=== PATIENT | female | born 1990 | race Caucasian/White ===

== ENCOUNTER 2024-04-21 01:17 | Emergency (ER) | payer OTHER, SELFPAY ==
[2024-04-21 01:22] VITALS: BP 143/117; PULSE 117; RESP 18; TEMP 36.3; O2SAT 98; BMI 26.2
--- NOTE | 2024-04-21 01:49 | ED_ITS ---
HPI - Abdominal Pain General Chief Complaint: Abdominal Pain Stated Complaint: Abdominal pain, short of breath Time Seen by Provider: 04/21/24 01:31 Source: patient and family Mode of arrival: ambulatory Limitations: no limitations History of Present Illness HPI narrative: 34-year-old female reports abdominal pain for the past hour, sudden onset. She reported to the triage nurse that the pain was located on her right side, tells me it is in the epigastric and left upper abdomen. Last bowel movement was around noon today, normal. Formed, no diarrhea or bloody stools. She does have a prior history of cholecystectomy. Says that the pain feels similar to that. She had this removed 3 years ago, uncomplicated per her report. Patient states that she had similar pain about a month ago in [place]. She reports that she was evaluated via telehealth visit and that injectable tramadol was sent to the pharmacy. She use the medication and her symptoms improved. She says that she was not evaluated in person by a provider, there were no labs, imaging or physical exam performed. I cannot verify this of course. Other than the gallbladder surgery 3 years ago, reports that she has also had liposuction but n o other abdominal surgeries. She states that she does not take long-term medications, does not have any allergies. She has had no recent fever. No trauma or injury. She is not having any dysuria, hematuria or gynecological changes. Denies chance of . She and her accompanying friend do repeatedly asked for injectable medications, even prior to completion of interview. She did not try taking any medication prior to coming to the ED. It sounds as though through the virtual visit that she had a month ago in [place], she was told that her symptoms were likely from some sort of renal colic. Again, I do ask for clarification and there were no labs or physical exam performed. It does not sound as though she has had any follow-up. She states that her past medical history is benign. I do not have any records to compare to. She has had a cholecystectomy 3 years ago and liposuction surgery. Denies other abdominal surgeries or gynecological surgeries. No long- term medications, no allergies. Nonsmoker. No history of bleeding or blood clotting disorder, no anticoagulants. ROS is notable for the abdominal symptoms only, otherwise denies times 12 systems. Related Data Home Medications ?Medication ?Instructions ?Recorded ?Confirmed No Known Home Medications 04/21/24 04/21/24 Allergies Allergy/AdvReac Type Severity Reaction Status Date / Time No Known Drug Allergies Allergy Verified 04/21/24 03:09 Exam Const: Vital Signs, click to edit/add: Vital Signs - 24 hr 04/21/24 01:22 Temperature 97.3 F L Pulse Rate [Pulse Oximeter] 117 H Respiratory Rate 18 Blood Pressure [Ri ght Upper Arm] 143/117 H Pulse Oximetry 98 Oxygen Delivery Me thod Room Air Documenting provider has reviewed patient's vital signs: yes Common normals: alert Other: Mild distress due to pain but can answer questions appropriately. HENMT: Common normals: normocephalic Head and scalp: normocephalic Face and sinus: normal facial exam Mouth: oral and palatal mucosa normal Throat: posterior oropharynx normal Eye: Common normals: conjunctivae normal General eye: normal appearance of both eyes Conjunctiva: conjunctiva(e) normal Neck & C-Spine: Common normals: no lymphadenopathy General: normal visual inspection Resp: Common normals: normal respiratory effort, no use of accessory muscles and clear to auscultation bilaterally Effort & inspection: able to speak in complete sentences Auscultation: clear to auscultation bilaterally Cardio: Common normals: regular rate, regular rhythm, S1 normal heart sound, S2 normal heart sound and no murmurs Rate: regular rate Rhythm: regular rhythm Heart sounds: S1 normal and S2 normal GI: Common normals: Normal to inspection, nondistended, normoactive bowel sounds present, soft to palpation, no hepatosplenomegaly and no masses Pal pation: soft and no hepatosplenomegaly Other: She reports pain to palpation of many areas, it does not seem to be very reproducible. There is certainly no rebound tenderness or guarding. She does seem quite uncomfortable on exam but it is not worse with deep palpation. It is a very unclear exam. There are no obvious mass. : Other: Mild right lower CVA tenderness but was not again purely reproducible. Back & Pelvis: Common normals: thoracic and lumbar spine normal to inspection Extremity: Common normals: normal to inspection and normal capillary refill General: normal exam except as noted Neuro: Sensorium/orientation: alert Speech: speech normal Motor exam: no movement abnormalities noted Psych: Common normals: thought process normal Attitude: engaged Activity/motor behavior: appropriate eye contact Thought process: normal thought process Insight: insight good Judgement: judgment good Skin: Common normals: no rashes or lesions noted General skin exam: no rashes or lesions noted Course Course ED Course: 34-year-old female presenting with significant abdominal pain, difficult to localize and described. Presentation and rapid onset are suspicious for ureterolithiasis. Cannot exclude bowel obstruction, pancreatitis, gastritis, gas pain, colitis, ischemic bowel, on reported trauma, gynecological complication, ectopic , narcotic withdrawal, amongst others. Unfortunately, exam was not very helpful. Dramatic presentation is suspicious for kidney stone, will start with Toradol and Zofran. I am hesitant to use narcotics especially with her repeated insistence for them and obtaining them over the phone from other providers recently. Will obtain urinalysis and test. Anticipate CT without contrast unless there are absolutely no signs of blood in the urine then will perform CT with contrast. Reevaluation(s) Time of Reevaluation #1: 03:23 Reevaluation #1: Patient was given Toradol, does seem more comfortable but claims that it was not particularly helpful. She has not had any vomiting, no diarrhea here. Her vitals are stable. All labs are normal. CT is normal. I counseled patient that I think that her pain is from gas but I do not see any reason for alarm. She may use [id number] Gas-X, Tylenol and ibuprofen as needed to treat her symptoms. Alarm symptoms reviewed that would warrant coming to the ED for this type of pain. Written instructions are provided. All questions answered. [employer] used for entire exam, explanation of results and time for questions. Primary care follow-up if frequent episodes or failure to resolve as expected. Vital Signs Vital signs: Initial Vital Signs Temperature 97.3 F L 04/21/24 01:22 Temperature Source Temporal Artery Scan 04/21/24 01:22 Pulse Rate 117 H 04/21/24 01:22 Respiratory Rate 18 04/21/24 01:22 Blood Pressure 143/117 H 04/21/24 01:22 Blood Pressure Mean 125 H 04/21/24 01:22 Blood Pressure Position Sitting 04/21/24 01:22 Pulse Oximetry 98 04/21/24 01:22 Oxygen Delivery Method Room Air 04/21/24 01:22 Vital Signs Temperature 97.3 F L 04/21/24 01:22 Pulse Rate 117 H 04/21/24 01:22 Respiratory Rate 18 04/21/24 01:22 Blood Pressure 143/117 H 04/21/24 01:22 Pulse Oximetry 98 04/21/24 01:22 Oxygen Delivery Method Room Air 04/21/24 01:22 Temperature 97.3 F L 04/21/24 01:22 Pulse Rate 117 H 04/21/24 01:22 Respiratory Rate 18 04/21/24 01:22 Blood Pressure 143/117 H 04/21/24 01:22 Pulse Oximetry 98 04/21/24 01:22 Oxygen Delivery Method Room Air 04/21/24 01:22 MDM - Abdominal Pain Lab Data Attestation: I reviewed the patient's lab results. Lab results narrative: Labs all reassuring Labs: Lab Results 04/21/24 04/21/24 04/21/24 Range/Units 01:40 01:52 01:55 WBC 6.13 (4.50-11.00) K/uL RBC 5.00 (4.00-5.20) m/uL Hgb 14.5 (12.0-16.0) gm/dL Hct 43.5 (33.0-51.0) % MCV 87 (80-100) fL MCH 29 (26-34) pg MCHC 33 (32-36) gm/dL RDW Coeff of Gurjit 13.0 (11.5-15.5) % Plt Count 319 (140-440) K/uL Neut % (Auto) 43.9 (42.0-72.0) % Lymph % (Auto) 46.3 H (20-44) % [place] % (Auto) 8.2 (0.0-11.0) % Eos % (Auto) 0.8 (0.0-7.0) % Baso % (Auto) 0.3 (0.0-3.0) % Neut # (Auto) 2.69 (1.7-7.0) K/uL Lymph # (Auto) 2.80 (0.90-2.90) K/uL [place] # (Auto) 0.50 (0.00-0.90) K/UL Eos # (Auto) 0.05 (0.00-0.50) K/uL Baso # (Auto) 0.02 (0.00-0.30) K/uL Abs Immat Gran (auto) 0.03 (0.00-0.30) K/uL Imm/Tot Granulo (auto) 0.5 % Sodium 136 (135-149) mmol/L Potassium 3.8 (3.6-5.1) mmol/L Chloride 106 (96-114) mmol/L Carbon Dioxide 22 (20-32) mmol/L Anion Gap 8 (7-15) mEq/L BUN 14 (5-24) mg/dL Creatinine 0.6 (0.5-1.5) mg/dL Estimated Creat Clear 99.69 Estimated GFR 121 ml/min Glucose 107 (60-115) mg/dL Lactate 0.9 (0.5-1.9) mmol/L Calcium 9.5 (8.4-10.6) mg/dL Total Bilirubin 0.3 (0.1-1.5) mg/dL AST 26 (12-35) U/L ALT 29 (4-35) U/L Alkaline Phosphatase 71 (40-150) U/L C-Reactive Protein < 0.5 L (0.5-1.0) mg/dL Total Protein 7.7 (6.0-8.3) g/dL Albumin 4.4 (3.3-5.0) g/dL Lipase 102 (23-300) U/L Urine Color Yellow (Yellow) Urine Appearance Cloudy A (Clear) Urine pH 6.0 (5.0-8.5) Ur Specific [place] 1.020 (1.000-1.030) Urine Protein Negative (Negative) Urine Glucose (UA) Negative (Negative) Urine Ketones Negative (Negative) Urine Blood Negative (Negative) Urine Nitrite Negative (Negative) Urine Bilirubin Negative (Negative) Urine Urobilinogen 0.2 (0.2-1.0) Ur Leukocyte Esterase Negative (Negative) Urine RBC 0-2 (0-2) Urine WBC 0-2 (0-5) Ur Squamous Epith Cells Few (None-Few) Urine Bacteria Few A (None) Urine HCG, Qual Negative (Negative) Urine Opiates Screen Negative (Negative) Ur Oxycodone Screen Negative (Negative) Urine Methadone Screen Negative (Negative) Ur Barbiturates Screen Negative (Negative) U Tricyclic Antidepress Negative (Negative) Ur Phencyclidine Scrn Negative (Negative) Ur Amphetamines Screen Negative (Negative) U Methamphetamines Scrn Negative (Negative) U Benzodiazepines Scrn Negative (Negative) Urine Cocaine Screen Negative (Negative) U Marijuana (THC) Screen Negative (Negative) Ur Drug Screen Comment See Note Ethyl Alcohol < 0.01 L (0.01-0.03) % Imaging Data CT scan - abdomen: Attestation: I have reviewed the pertinent imaging results. My impression: Normal CT. Some bowel gas that could explain pain Radiologist's impression: Ordering Physician:?Amarilys Reich Final Report: Indication: Severe sudden central and right-sided abdominal pain wrapping into the back Technique: CT through the abdomen and pelvis following 68 mL Isovue 370 IV contrast Comparison: None Findings: Lower chest: No acute abnormality appreciated. Hepatobiliary: No significant parenchymal abnormality is appreciated. Cholecystectomy. Spleen: Unremarkable. Pancreas: No acute abnormality appreciated. Adrenal glands: No acute abnormality appreciated. Kidneys: No significant parenchymal abnormality appreciated. No visualized calculi. No hydronephrosis. Bowel: No obstruction. No focal perienteric or pericolonic stranding is appreciated. The appendix is visualized and appears unremarkable. Vascular: No acute abnormality appreciated. Lymph nodes: No gross lymphadenopathy. Peritoneum: No free air. No free fluid. : Left corpus luteal cyst, otherwise unremarkable. Soft tissues: No acute abnormality appreciated. Bones: No acute fracture. No lytic or blastic lesion. Impression: No acute abnormality appreciated. Please note that all CT scans at this facility use dose modulation, iterative reconstruction, and/or weight-based dosing when appropriate to reduce radiation dose to as low as reasonably achievable. Dictated by Chris Swan MD @ 04/21/2024 3:10:55 AM Discharge Plan Discharge Clinical Impression: Abdominal gas pain Patient Disposition: Home w/ Parent or Adult Condition: Improved Instructions: Gas and Bloating (ED) Additional Instructions: As we discussed, the CT scan of your abdomen, all blood work and urine tests are completely normal. There are no problems with your liver, kidneys, ovaries, intestines. There are no signs of infection, obstruction, kidney stones, pancreatitis, any other complications. You do have some gas on the CT scan that certainly could explain your pain. Typically, these types of things are not evaluated in the emergency room. It is okay to use [id number]-[id number] treatment of Tylenol 1000 mg every 6 hours and or ibuprofen 600 mg every 6 hours. You may purchase these [id number]-nce-[id number] at any pharmacy or grocery store. If you have persistent vomiting, persistent bloody stools, high fever and or other significant signs of worsening. And your pain is not relieved with the Tylenol and ibuprofen, you can consider re-evaluation. If you have frequent episodes, consider use of an bsqr-kja-[id number] Gas-X and discussion with a primary care doctor. Cass ya comentamos, la tomograf?a computarizada de abdomen, todos los an?lisis de javier y de orina son completamente normales. No hay problemas con el h?gado, los ri?ones, los ovarios ni los intestinos. No hay signos de infecci?n, obstrucci?n, c?lculos renales, pancreatitis ni ninguna otra complicaci?n. En la tomograf?a computarizada se observan gases que sin daya podr?an explicar el dolor. Normalmente, vinnie tipo de cosas no se eval?an en la ani de urgencias. Est? liss utilizar un tratamiento de venta michelle de Tylenol 1000 mg cada 6 horas o ibuprofeno 600 mg cada 6 horas. Puede adquirirlos sin receta en cualquier farmacia o supermercado. Si tiene v?mitos persistentes, heces con javier persistentes, fiebre kori u otros signos significativos de empeoramiento y el dolor no se boby con Tylenol e ibuprofeno, puede considerar bella reevaluaci?n. Si tiene episodios frecuentes, considere utilizar un medicamento de venta michelle llamado Gas-X y consultarlo con un m?dico de atenci?n primaria. Activity Level: No Restrictions Discharge Diet: Regular Prescriptions: No Action No Known Home Medications Stand Alone Forms: [employer] Info Instructions
[2024-04-21 01:57] LABS: Basophils Absolute Auto 0.02 K/uL (0.00-0.30); Basophils Percent Auto 0.3 % (0.0-3.0); Eosinophils Absolute Auto 0.05 K/uL (0.00-0.50); Eosinophils Percent Auto 0.8 % (0.0-7.0); Hematocrit 43.5 % (33.0-51.0); Hemoglobin* 14.5 gm/dL (12.0-16.0); Immature Granulocytes Abs Auto 0.03 K/uL (0.00-0.30); Immature Granulocytes Pct Auto 0.5 %; Lymphocytes Percent Auto 46.3 % (20-44); Mean Corpuscular HGB Conc 33 gm/dL (32-36); Mean Corpuscular Hemoglobin 29 pg (26-34); Mean Corpuscular Volume 87 fL (80-100); Monocytes Percent Auto 8.2 % (0.0-11.0); Neutrophils Absolute Auto 2.69 K/uL (1.7-7.0); Neutrophils Percent Auto 43.9 % (42.0-72.0); Platelet Count* 319 K/uL (140-440); White Blood Count* 6.13 K/uL (4.50-11.00)
[2024-04-21 01:59] LABS: Lactate* 0.9 mmol/L (0.5-1.9)
[2024-04-21 02:00] LABS: Slide Review Reflex No
[2024-04-21 02:04] LABS: Appearance Urine Cloudy (Clear); Bilirubin Urine Negative (Negative); Blood Urine Negative (Negative); Color Urine Yellow (Yellow); Glucose Urine Negative (Negative); Ketones Urine Negative (Negative); Leukocyte Esterase Urine Negative (Negative); Nitrite Urine Negative (Negative); Protein Urine Negative (Negative); Urobilinogen Urine 0.2 (0.2-1.0)
[2024-04-21 02:08] LABS: Amphetamine Screen Urine Negative (Negative); Barbiturate Screen Urine Negative (Negative); Benzodiazepines Screen Urine Negative (Negative); Cannabinoid Screen Urine Negative (Negative); Cocaine Screen Urine Negative (Negative); Methadone Screen Urine Negative (Negative); Methamphetamines Screen Urine Negative (Negative); Opiate Screen Urine Negative (Negative); Oxycodone Screen Urine Negative (Negative); Phencyclidine Screen Urine Negative (Negative); Tricyclic Antidepressant Urine Negative (Negative)
[2024-04-21 02:22] LABS: Ur HCG Qualitative* Negative (Negative)
[2024-04-21 02:22] LABS: Ethanol* < 0.01 % (0.01-0.03)
--- NOTE | 2024-04-21 02:26 | CRLHL7_ITS ---
For Patients: As a result of the Century Cures Act, medical imaging exams and procedure reports are released immediately into your electronic medical record. You may view this report before your referring provider. If you have questions, please contact your health care provider. Indication: Severe sudden central and right-sided abdominal pain wrapping into the back Technique: CT through the abdomen and pelvis following 68 mL Isovue 370 IV contrast Comparison: None Findings: Lower chest: No acute abnormality appreciated. Hepatobiliary: No significant parenchymal abnormality is appreciated. Cholecystectomy. Spleen: Unremarkable. Pancreas: No acute abnormality appreciated. Adrenal glands: No acute abnormality appreciated. Kidneys: No significant parenchymal abnormality appreciated. No visualized calculi. No hydronephrosis. Bowel: No obstruction. No focal perienteric or pericolonic stranding is appreciated. The appendix is visualized and appears unremarkable. Vascular: No acute abnormality appreciated. Lymph nodes: No gross lymphadenopathy. Peritoneum: No free air. No free fluid. : Left corpus luteal cyst, otherwise unremarkable. Soft tissues: No acute abnormality appreciated. Bones: No acute fracture. No lytic or blastic lesion. Impression: No acute abnormality appreciated. Please note that all CT scans at this facility use dose modulation, iterative reconstruction, and/or weight-based dosing when appropriate to reduce radiation dose to as low as reasonably achievable. Dictated by Chris Swan MD @ 04/21/2024 3:10:55 AM (Electronically Signed)
[2024-04-21 02:27] LABS: Bacteria Urine Few; RBC Urine 0-2 (0-2); Squamous Epithelial Cell Urine Few (None-Few); WBC Urine 0-2 (0-5)
[2024-04-21 02:32] LABS: Albumin* 4.4 g/dL (3.3-5.0); Chloride* 106 mmol/L (96-114); Sodium* 136 mmol/L (135-149)
[2024-04-21 02:35] LABS: Alkaline Phosphatase* 71 U/L (40-150); Anion Gap 8 mEq/L (7-15); Aspartate Amino Transferase* 26 U/L (12-35); Bilirubin Total* 0.3 mg/dL (0.1-1.5); Carbon Dioxide* 22 mmol/L (20-32); Creatinine* 0.6 mg/dL (0.5-1.5); Est. Creatinine Clearance* 99.69; Estimated Glomerular Filt Rate 121 ml/min; Potassium* 3.8 mmol/L (3.6-5.1); Total Protein* 7.7 g/dL (6.0-8.3)
[2024-04-21 02:36] LABS: Alanine Aminotransferase* 29 U/L (4-35); Blood Urea Nitrogen* 14 mg/dL (5-24); Calcium* 9.5 mg/dL (8.4-10.6); Glucose* 107 mg/dL (60-115); Lipase* 102 U/L (23-300)
[2024-04-21 02:40] LABS: C Reactive Protein* < 0.5 mg/dL (0.5-1.0)
== END 2024-04-21 03:38 | disposition home or self-care (01) ==
PROVIDERS: Emergency Provider Family Medicine
DX: R14.1 Gas pain (principal)
CPT/HCPCS: 36415; 74177; 80053; 80306; 81001; 81003; 81025; 82077; 83605; 83690; 85025; 86140; 87086; 96374; 96375; 99284; 99285; Q9967

== ENCOUNTER 2024-09-04 15:48 | Emergency (ER) | payer OTHER, SELFPAY ==
[2024-09-04 15:56] VITALS: BP 144/89; PULSE 113; RESP 18; TEMP 36.6; O2SAT 99
[2024-09-04 16:17] LABS: Appearance Urine Clear (Clear); Bilirubin Urine Negative (Negative); Blood Urine Negative (Negative); Color Urine Yellow (Yellow); Glucose Urine Negative (Negative); Ketones Urine Negative (Negative); Leukocyte Esterase Urine Negative (Negative); Nitrite Urine Negative (Negative); Protein Urine Trace (Negative); Specific Gravity Urine 1.015 (1.000-1.030); Urobilinogen Urine 0.2 (0.2-1.0); pH Urine 8.5 (5.0-8.5)
[2024-09-04 16:18] LABS: Ur HCG Qualitative* POSITIVE (Negative)
--- NOTE | 2024-09-04 16:26 | ED.ABDPAIN ---
HPI - Abdominal Pain General Chief Complaint: Abdominal Pain Stated Complaint: Abdominal Pain/potential Time Seen by Provider: 09/04/24 16:16 History of Present Illness HPI narrative: This 34-year-old female is reporting abdominal pain in her lower abdomen for the past 5 days or so. She has also had some nausea with occasional vomiting. She states that she has had her gallbladder removed. Her pain is in her lower abdomen. She did have a positive test for last evening. She states that her last menses was less than a month ago. Related Data Home Medications ?Medication ?Instructions ?Recorded ?Confirmed No Known Home Medications 04/21/24 09/04/24 Allergies Allergy/AdvReac Type Severity Reaction Status Date / Time No Known Drug Allergies Allergy Verified 09/04/24 15:56 Review of Systems Status of ROS Reports: 10 or more systems reviewed and unremarkable except as noted in History and below Narrative Constitutional: No fevers, no weight gain or loss. Eyes: No discharge. No vision changes. HENT: No congestion, no sore throat, no ear pain. Cardiovascular: No chest pain, no palpitations. Respiratory: No shortness of breath, no wheezes, no cough. Gastrointestinal: No diarrhea. Lower abdominal pain. Nausea with vomiting. Genitourinary: No dysuria, no hematuria. Musculoskeletal: Normal range of motion. Skin: No rashes, no pruritis. Neurological: No dizziness, weakness, sensory change, speech change. Endo/Heme/Allergies: No bruising or bleeding. No polydipsia. Pysch: no suicidality, no anxiety, no insomnia. All other systems reviewed and are negative. [facility] Social History Smoking Status: Never smoker How often do you have a drink containing alcohol: never AUDIT-C Alcohol total score: 0 Non-prescribed substance use: denies use Exam Narrative: Exam Narrative: Constitutional: Well-developed, well-nourished, no acute distress. HEENT: Normocephalic, atraumatic. Neck: Normal range of motion. Nontender. Supple. Heart: Regular. No murmurs. Normal rate. Intact distal pulses. Lungs: Clear to auscultation. No chest discomfort. No wheezes, rhonchi, or rales. Abdomen: Normal bowel sounds. Mild tenderness in lower abdomen. No rebound tenderness. Genitalia: Deferred. Back: No midline tenderness. Normal range of motion. Extremities: Normal range of motion. No injury. Skin: Intact. No rash. Warm. No erythema or pallor. Neurologic: No altered sensation. No weakness. Alert and oriented. Psychiatric: No suicidality. No anxiety or depression. No insomnia. Nursing notes and vitals signs are reviewed. Const: Vital Signs, click to edit/add: Vital Signs - 24 hr 09/04/24 15:56 Temperature 98 F Pulse Rate [Pulse Oximeter] 113 H Respiratory Rate 18 Blood Pressure [Ri ght Upper Arm] 144/89 H Pulse Oximetry 99 Oxygen Delivery Me thod Room Air Course Vital Signs Vital signs: Initial Vital Signs Temperature 98 F 09/04/24 15:56 Temperature Source Temporal Artery Scan 09/04/24 15:56 Pulse Rate 113 H 09/04/24 15:56 Respiratory Rate 18 09/04/24 15:56 Blood Pressure 144/89 H 09/04/24 15:56 Blood Pressure Mean 107 H 09/04/24 15:56 Blood Pressure Position Sitting 09/04/24 15:56 Pulse Oximetry 99 09/04/24 15:56 Oxygen Delivery Method Room Air 09/04/24 15:56 Vital Signs Temperature 98 F 09/04/24 15:56 Pulse Rate 113 H 09/04/24 15:56 Respiratory Rate 18 09/04/24 15:56 Blood Pressure 144/89 H 09/04/24 15:56 Pulse Oximetry 99 09/04/24 15:56 Oxygen Delivery Method Room Air 09/04/24 15:56 Temperature 98 F 09/04/24 15:56 Pulse Rate 113 H 09/04/24 15:56 Respiratory Rate 18 09/04/24 15:56 Blood Pressure 144/89 H 09/04/24 15:56 Pulse Oximetry 99 09/04/24 15:56 Oxygen Delivery Method Room Air 09/04/24 15:56 Medications Administered Medications: Discontinued Medications Generic Name Dose Route Start Last Admin Trade Name Freq PRN Reason Stop Dose Admin Acetaminophen 1,000 mg 09/04/24 16:49 09/04/24 16:56 Acetaminophen 500 Mg Tablet PO 09/04/24 16:50 1,000 mg ONCE ONE Administration MDM - Abdominal Pain MDM Narrative Medical decision making narrative: This patient comes in reporting some abdominal pain in her lower abdomen and thinks that she is . She did report a positive test was done last evening. Her exam is actually reassuring with normal vital signs and no significant abdominal pain or any evidence of rebound tenderness. She states that her last menstrual period was less than a month ago. She is not having any crampy type pain or vaginal discharge. Labs are acquired including urinalysis and blood and these returned with normal findings. Her serum qualitative test is positive. The patient did receive Tylenol 1000 mg here and is encouraged use the same for symptomatic relief. I encouraged her to follow-up with OBGYN clinic for ongoing management. Lab Data Labs: Lab Results 09/04/24 09/04/24 09/04/24 Range/Units 16:10 16:25 16:37 WBC 5.37 (4.50-11.00) K/uL RBC 4.65 (4.00-5.20) m/uL Hgb 13.5 (12.0-16.0) gm/dL Hct 40.9 (33.0-51.0) % MCV 88 (80-100) fL MCH 29 (26-34) pg MCHC 33 (32-36) gm/dL RDW Coeff of Gurjit 12.7 (11.5-15.5) % Plt Count 305 (140-440) K/uL Neut % (Auto) 64.6 (42.0-72.0) % Lymph % (Auto) 25.1 (20-44) % [place] % (Auto) 9.5 (0.0-11.0) % Eos % (Auto) 0.4 (0.0-7.0) % Baso % (Auto) 0.2 (0.0-3.0) % Neut # (Auto) 3.47 (1.7-7.0) K/uL Lymph # (Auto) 1.35 (0.90-2.90) K/uL [place] # (Auto) 0.50 (0.00-0.90) K/UL Eos # (Auto) 0.02 (0.00-0.50) K/uL Baso # (Auto) 0.01 (0.00-0.30) K/uL Abs Immat Gran (auto) 0.01 (0.00-0.30) K/uL Imm/Tot Granulo (auto) 0.2 % Sodium 138 (135-149) mmol/L Potassium 3.7 (3.6-5.1) mmol/L Chloride 102 (96-114) mmol/L Carbon Dioxide 26 (20-32) mmol/L Anion Gap 10 (7-15) mEq/L BUN 14 (5-24) mg/dL Creatinine 0.6 (0.5-1.5) mg/dL Estimated GFR 121 ml/min Glucose 109 (60-115) mg/dL Calcium 9.0 (8.4-10.6) mg/dL Total Bilirubin 0.7 (0.1-1.5) mg/dL Direct Bilirubin 0.2 (0.0-0.5) mg/dL AST 30 (12-35) U/L ALT 43 H (4-35) U/L Alkaline Phosphatase 63 (40-150) U/L Total Protein 7.9 (6.0-8.3) g/dL Albumin 4.9 (3.3-5.0) g/dL HCG, Qual Cancelled Urine Color Yellow Cancelled (Yellow) Urine Appearance Clear Cancelled (Clear) Urine pH 8.5 Cancelled (5.0-8.5) Ur Specific [place] 1.015 Cancelled (1.000-1.030) Urine Protein Trace A Cancelled (Negative) Urine Glucose (UA) Negative Cancelled (Negative) Urine Ketones Negative Cancelled (Negative) Urine Blood Negative Cancelled (Negative) Urine Nitrite Negative Cancelled (Negative) Urine Bilirubin Negative Cancelled (Negative) Urine Urobilinogen 0.2 Cancelled (0.2-1.0) Ur Leukocyte Esterase Negative Cancelled (Negative) Urine RBC 0-2 Cancelled (0-2) Urine WBC 0-2 Cancelled (0-5) Urine WBC Clumps Cancelled Ur Squamous Epith Cells Few Cancelled (None-Few) [place] Biurate Crystals Cancelled Calcium Carbonate Cryst Cancelled Calcium Phosphate Cryst Cancelled Calcium Oxalate Crystal Cancelled Cystine Crystals Cancelled Uric Acid Crystals Cancelled Triple Phos Crystals Cancelled Sulfur Crystals Cancelled Cholesterol Crystals Cancelled Tyrosine Crystals Cancelled Hippuric Acid Crystals Cancelled Amorphous Sediment Cancelled Other Sediment Cancelled Urine Bacteria Few A Cancelled (None) Fatty Casts Cancelled Hyaline Casts Cancelled Fine Granular Casts Cancelled Coarse Granular Casts Cancelled Waxy Casts Cancelled RBC Casts Cancelled WBC Casts Cancelled Other Casts Cancelled Urine Starch Cancelled Urine Mucus Cancelled Urine Trichomonas Cancelled Urine Yeast Cancelled Urine HCG, Qual POSITIVE H (Negative) Discharge Plan Discharge Clinical Impression: Abdominal pain Patient Disposition: Home, Self-Care Condition: Stable Additional Instructions: Use Tylenol as needed and directed. Follow-up with OBGYN clinic for ongoing management. Call [phone] for appointment. Return if worsening. Prescriptions: No Action No Known Home Medications Follow Up/Referrals: Provider,Not a Local [Primary Care Provider] - Stand Alone Forms: [employer] Info Instructions
[2024-09-04 16:44] LABS: Basophils Absolute Auto 0.01 K/uL (0.00-0.30); Basophils Percent Auto 0.2 % (0.0-3.0); Eosinophils Absolute Auto 0.02 K/uL (0.00-0.50); Eosinophils Percent Auto 0.4 % (0.0-7.0); Hematocrit 40.9 % (33.0-51.0); Hemoglobin* 13.5 gm/dL (12.0-16.0); Immature Granulocytes Abs Auto 0.01 K/uL (0.00-0.30); Immature Granulocytes Pct Auto 0.2 %; Lymphocytes Absolute Auto 1.35 K/uL (0.90-2.90); Lymphocytes Percent Auto 25.1 % (20-44); Mean Corpuscular HGB Conc 33 gm/dL (32-36); Mean Corpuscular Hemoglobin 29 pg (26-34); Mean Corpuscular Volume 88 fL (80-100); Monocytes Percent Auto 9.5 % (0.0-11.0); Neutrophils Absolute Auto 3.47 K/uL (1.7-7.0); Neutrophils Percent Auto 64.6 % (42.0-72.0); Platelet Count* 305 K/uL (140-440); RDW Coefficient of Variation % 12.7 % (11.5-15.5); Red Blood Count 4.65 m/uL (4.00-5.20); White Blood Count* 5.37 K/uL (4.50-11.00)
[2024-09-04 16:52] LABS: Bacteria Urine Few; RBC Urine 0-2 (0-2); Squamous Epithelial Cell Urine Few (None-Few); WBC Urine 0-2 (0-5)
[2024-09-04] MEDS: ACETAMINOPHEN 500 MG TABLET 1000 MG PO (16:56)
[2024-09-04 16:58] LABS: Albumin* 4.9 g/dL (3.3-5.0); Chloride* 102 mmol/L (96-114); Potassium* 3.7 mmol/L (3.6-5.1); Sodium* 138 mmol/L (135-149)
[2024-09-04 17:01] LABS: Alanine Aminotransferase* 43 U/L (4-35); Alkaline Phosphatase* 63 U/L (40-150); Anion Gap 10 mEq/L (7-15); Aspartate Amino Transferase* 30 U/L (12-35); Bilirubin Direct* 0.2 mg/dL (0.0-0.5); Bilirubin Total* 0.7 mg/dL (0.1-1.5); Blood Urea Nitrogen* 14 mg/dL (5-24); Carbon Dioxide* 26 mmol/L (20-32); Creatinine* 0.6 mg/dL (0.5-1.5); Estimated Glomerular Filt Rate 121 ml/min; Total Protein* 7.9 g/dL (6.0-8.3)
[2024-09-04 17:02] LABS: Glucose* 109 mg/dL (60-115)
[2024-09-04 17:05] LABS: Slide Review Reflex No
== END 2024-09-04 18:30 | disposition home or self-care (01) ==
PROVIDERS: Emergency Provider Emergency Medicine Emergency Medical Services
DX: R10.9 Unspecified abdominal pain (principal); N89.8 Other specified noninflammatory disorders of vagina; Z32.01 Encounter for pregnancy test, result positive
CPT/HCPCS: 36415; 80048; 80076; 81001; 81003; 81015; 81025; 84703; 85025; 87086; 99283; 99284; A9270